=== PATIENT | female | born 1955 | race Caucasian/White ===

== ENCOUNTER 2018-08-30 10:51 | Emergency (ER) | payer OTHER ==
[2018-08-30] MEDS: HYDROCODONE/APAP (5/325) TAB PO (11:42)
[2018-08-30] MEDS: IBUPROFEN 600 MG TAB PO (11:42)
[2018-08-30] MEDS: DIPHTH/TET/ACEL PERTUSS (ADULT) 0.5 ML VIAL IM* (12:08)
== END 2018-08-30 12:26 | disposition home or self-care (01) ==
LOC: FTE 10:51
DX: T21.22XA Burn of second degree of abdominal wall, initial encounter (principal); X12.XXXA Contact with other hot fluids, initial encounter; Y92.9 Unspecified place or not applicable; Z23 Encounter for immunization
CPT/HCPCS: 90471; 90715; 99283-25

== ENCOUNTER 2018-09-07 21:23 | Emergency (ER) | payer OTHER ==
[2018-09-08] MEDS: SILVER SULFADIAZINE 1% 25 GM CR TOP (03:00)
== END 2018-09-08 02:55 | disposition home or self-care (01) ==
LOC: FTE 21:23
DX: T21.22XA Burn of second degree of abdominal wall, initial encounter (principal); R40.2412 Glasgow coma scale score 13-15, at arrival to emergency department; X19.XXXA Contact with other heat and hot substances, initial encounter; Y92.9 Unspecified place or not applicable
CPT/HCPCS: 16020; 99283-25